=== PATIENT | male | born 1995 ===

== ENCOUNTER 2023-07-27 15:57 | Outpatient (REF) | payer BC, SELFPAY ==
[2023-07-27 21:52] LABS: Abs Immature Grans 0.02 10^3/uL (0.0-0.06); Absolute Basophil Count 0.09 10^3/uL (0.0-0.2); Absolute Eosinophil Count 0.36 10^3/uL (0.0-0.7); Absolute Lymphocyte Count 1.76 10^3/uL (1.2-3.4); Absolute Monocyte Count 0.64 10^3/uL (0.1-0.8); Absolute Neutrophil Count 3.81 10^3/uL (1.2-6.7); Basophils % 1.3 %; Eosinophils % 5.4 %; HCT 45.2 % (40.0-50.0); Immature Grans % 0.3 %; Lymphocytes % 26.3 %; MCH 29.3 pg (27.0-33.0); MCHC 35.4 % (32.0-36.0); MCV 83 fL (80-95); MPV 9.6 fL (8.0-11.0); Monocytes % 9.6 %; Neutrophils % 57.1 %; Platelet Count 214 10^3/uL (130-400); RBC 5.47 10^6/uL (4.36-5.78); RDW 12.1 % (11.8-14.1); WBC 6.68 10^3/uL (4.4-10.8)
[2023-07-27 22:08] LABS: ALT 25 U/L (16-63); AST 16 U/L (15-37); Albumin 4.7 g/dL (3.4-5.0); Alkaline Phosphatase 57 U/L (46-116); Anion Gap 9.4 mmol/L (3-11); BUN 16 mg/dL (7-18); Bilirubin, Total 0.7 mg/dL (0.2-1.0); CO2 28.6 mmol/L (21.0-32.0); CREATININE 0.9 mg/dL (0.70-1.30); Calcium 9.3 mg/dL (8.5-10.1); Chloride 105 mmol/L (98-107); Glucose 102 mg/dL (74-106); Potassium 3.5 mmol/L (3.5-5.1); Sodium 143 mmol/L (136-145); Total Protein 7.7 g/dL (6.4-8.2)
== END 2023-07-27 15:58 | disposition home or self-care (01) ==
LOC: LBN 15:57
PROVIDERS: Visit Provider Physician Assistant Medical
DX: R20.2 Paresthesia of skin (principal)
CPT/HCPCS: 80053; 85025